=== PATIENT | female | born 1990 | race Two or more races ===

== ENCOUNTER 2024-09-27 12:04 | Emergency (ER) | payer MEDICAID, SELFPAY ==
[2024-09-27 12:13] VITALS: BP 112/75; PULSE 96; RESP 16; TEMP 36.5; O2SAT 98; BMI 37.7
--- NOTE | 2024-09-27 12:19 | XR_ITS ---
Examination: Complete OB ultrasound, less than 14 weeks, transabdominal Date and time of exam: September 27, 2024 1235 hours INDICATIONS: Dizziness episodes beginning 3 days ago Technique: Obstetrical ultrasound images less than 14 weeks performed via transabdominal imaging Findings: A normal shaped single intrauterine gestation is present in the uterus. pole 1.8 cm corresponds to 8 weeks 2 days gestational age Cardiac motion 155 BPM 11 x 18 mm subchorionic hemorrhage Ultrasonographic survey of visible structures unremarkable. Amniotic fluid volume appears appropriate for this estimated gestational age. Right ovary 3.9 cm arterial flow Left ovary 3.6 cm arterial flow 15 mm follicular cyst IMPRESSION: Viable intrauterine gestation 8 weeks 2 days, recommend short-term follow-up study given the subchorionic hemorrhage.
--- NOTE | 2024-09-27 12:20 | PD.EDADULT ---
ED General RME/HPI General Chief complaint: General Adult/Misc Complain Stated complaint: LIGHTHEADED, 9 WEEKS Time Seen by Provider: 09/27/24 12:11 Arrival date/time: 09/27/24 12:04 RME / HPI RME / HPI narrative: 33-year-old female patient 11 para 8, 2, came in for evaluation regarding lightheadedness. She been having lightheadedness for several days, comes and goes, associated with nausea. Patient denies any abdominal pain denies any vaginal bleeding or spotting. Patient denies any headache denies any upper or lower extremity weakness. Patient is 9 weeks no checkup done yet. Related Data Allergies Allergy/AdvReac Type Severity Reaction Status Date / Time No Known Allergies Allergy Verified 12/14/22 15:34 Review of Systems Review of Systems Narrative Review of Systems: Review of system reviewed and within normal limits except mentioned in HPI ED Exam Narrative Physical exam: VITAL SIGNS: Reviewed. GENERAL APPEARANCE: Alert and interactive, follows commands, no acute distress, HEAD AND FACE: Non-traumatic. ENT: PERRL, pink conjunctivitis, eyelid no trauma, Mucous membrane moist. NECK: Supple, nontender, no nuchal rigidity. CHEST: No tenderness, no crepitus, no paradoxical movement, no retractions. LUNGS: Clear, well ventilated, symmetric, no rales, no wheezing, no ronchi, no stridor, good breath sounds bilaterally. HEART: Regular rate, regular rhythm, no murmur, no gallops. ABDOMEN: Soft, positive bowel sounds, nondistended, no guarding, nontender, no rebound, no masses, RECTAL: Deferred. GENITAL: Deferred. NEUROLOGICAL: Gross motor function intact sensory function intact, Appropriate for age. MUSCULOSKELETAL: low back nontender, full range of motion. EXTREMITIES: Nontender, full range of motion. SKIN: Color pink, dry, no rash, no lacerations, no abrasions, no contusions. LYMPHATICS: Deferred. Course Quality Measures none Orders Category Date Time Status US OB <= 14 weeks fetus Stat Exams 09/27/24 12:19 Completed ABO/RH Type Stat Lab 09/27/24 12:33 Completed Basic Metabolic Panel Stat Lab 09/27/24 12:33 Completed Beta HCG,Quantitative Stat Lab 09/27/24 12:33 Completed CBC Stat Lab 09/27/24 12:33 Completed Urinalysis Stat Lab 09/27/24 13:34 Completed Vital Signs Vital signs: Vital Signs Temperature 97.7 F 09/27/24 12:13 Pulse Rate 96 09/27/24 12:13 Respiratory Rate 16 09/27/24 12:13 Blood Pressure 112/75 09/27/24 12:13 Pulse Oximetry (%) 98 09/27/24 12:13 Oxygen Delivery Method Room Air 09/27/24 12:13 Discharge Plan Plan Patient Disposition: Elopement Prescriptions/Referrals Referrals: Jack Galloway MD [Primary Care Provider] - In 1 week Problem List Clinical Impression: Dizziness, Patient/Caregiver Discharge Instructions Print Language: Tanzanian MDM Narrative MDM hospital course: 33-year-old female patient 11 para 8, 2, came in for evaluation regarding lightheadedness. She been having lightheadedness for several days, comes and goes, associated with nausea. Patient denies any abdominal pain denies any vaginal bleeding or spotting. Patient denies any headache denies any upper or lower extremity weakness. Patient is 9 weeks no checkup done yet. Patient's laboratory workup all came back unremarkable including normal urinalysis, ultrasound showed single live intrauterine gestation about 8 weeks gestation Patient eloped from the emergency room Diagnosis Differential diagnosis: Dizziness, anemia, dizziness, Dispositon Disposition: other (Elopement)
[2024-09-27 12:43] LABS: Basophils % (Auto) 0 % (0-2.5); Eosinophils # (Auto) 0.2 Thou/mm3 (0.0-0.5); Eosinophils % (Auto) 2 % (0-10); Hematocrit 37.3 % (36.0-46.0); Hemoglobin 12.8 g/dL (12.0-16.0); Immature Granulocytes % (Auto) 0 % (0-0); Immature Granulocytes Auto 0.03 Thou/mm3 (0.00-0.00); Lymphocytes # (Auto) 2.3 Thou/mm3 (1.0-4.8); Lymphocytes % (Auto) 23 % (10-50); Mean Corpuscular HGB Conc 34.3 g/dl (31.0-37.0); Mean Corpuscular Hemoglobin 31.1 pg (25.0-35.0); Mean Corpuscular Volume 91 fL (80-100); Monocytes # (Auto) 0.7 Thou/mm3 (0.0-0.8); Monocytes % (Auto) 6 % (0-12); Neutrophils % (Auto) 68 % (37-80); Nucleated Red Blood Cell % 0 /100 WBC (0); Platelet Count 259 Thou/mm3 (140-440); Red Blood Count 4.11 Miln/mm3 (4.00-5.20); White Blood Count 10.3 Thou/mm3 (3.6-11.0)
[2024-09-27 13:14] LABS: Anion Gap 9 (7-16); BUN/Creatinine Ratio 10 Ratio (12-20); Blood Urea Nitrogen 7 mg/dL (9-23); Calcium 8.8 mg/dL (8.3-10.6); Carbon Dioxide 23.7 mMol/L (20.0-31.0); Chloride 105 mMol/L (98-107); Creatinine (Component) 0.7 mg/dL (0.6-1.3); Estimated Creatinine Clearance 111.4 mL/min (>60); Glucose 115 mg/dL (74-106); Osmolality,Calculated 274 (275-295); Potassium 3.9 mMol/L (3.4-5.1); Sodium 138 mMol/L (136-145); eGFR > 60 See Note
[2024-09-27 13:53] LABS: Beta HCG,Quantitative 147068 mIU/mL (<5.0)
[2024-09-27 13:56] LABS: Collection Type, Urine Clean Catch
[2024-09-27 14:12] LABS: Bacteria,Urine Rare; Bilirubin,Urine Negative (Negative); Blood,Urine 2+ (Negative); Color,Urine Yellow (Lt Yel-Yel); Glucose, Urine Negative (Negative); Ketones,Urine Negative (Negative); Leukocyte Esterase,Urine Positive (Negative); Nitrite,Urine Negative (Negative); Protein,Urine Negative (Neg - Trace); RBC,Urine 10 /hpf (0-3); Specific Gravity,Urine 1.025 (1.001-1.035); Squamous Epithelial Cell,Urine 17 /hpf (0-5); Urobilinogen,Urine Negative mg/dL (0.0-1.0); WBC,Urine 1 /hpf (0-5)
[2024-09-27 14:35] LABS: Clarity,Urine Hazy (Clear/Hazy)
== END 2024-09-27 14:30 | disposition left against medical advice (07) ==
LOC: SERX 12:23
PROVIDERS: Nurse Practitioner Family; Emergency Provider Family Medicine; PCP Family Medicine
DX: O26.891 Other specified pregnancy related conditions, first trimester (principal); R42 Dizziness and giddiness; Z3A.09 9 weeks gestation of pregnancy; Z53.29 Procedure and treatment not carried out because of patient's decision for other reasons
CPT/HCPCS: 36415; 76801; 80048; 81001; 84702; 85025; 86900; 86901; 99281

== ENCOUNTER 2024-09-30 15:56 | Emergency (ER) | payer MEDICAID, SELFPAY ==
[2024-09-30 15:57] VITALS: BMI 37.7
[2024-09-30 16:08] VITALS: BP 98/68; PULSE 93; RESP 20; TEMP 37.1; O2SAT 97
--- NOTE | 2024-09-30 16:26 | XR_ITS ---
Examination: CT brain head without contrast. 2-D sagittal coronal reconstructions Date and time of exam:September 30, 2024 1701 hours INDICATIONS: Dizziness weakness today CTDI: vol (mGy):52.1 DLP: (mGycm):1001 Technique: Multiple CT axial sections of the brain have been obtained, 5 mm slice thickness. Contrast has not been administered. 2-D sagittal, coronal reconstructions have been obtained Low dose protocols were performed. One or more of the following dose reduction techniques were used; automated exposure control, adjustment of the mA and/or KV according to patient size, use of iterative reconstruction technique. Findings: No significant ventricular enlargement. Intra-axial or extra-axial hemorrhage density is not seen. No mass effect or midline shift Basal cisterns are not remarkable. Fourth ventricle is midline. Cranial vault intact. Significant chronic left maxillary sinus disease Impression: Negative for acute hemorrhage, mass effect or midline shift
--- NOTE | 2024-09-30 16:28 | EDNOTE_ITS ---
ED Dizzyness RME/HPI General Chief Complaint: Dizziness Stated Complaint: DIZZY 8 WEEKS Time Seen by Provider: 09/30/24 15:59 Source: patient Arrival date/time: 09/30/24 15:56 This is a case of 33-year-old female with no medical history who came in the emergency room due to dizziness on and off for 2 weeks.With lightheadedness headache and on and off nausea and vomiting today patient denies any numbness weakness tingling sensation but complaining of blurring of vision Patient is pregnanct 8 weeks no check up Related Data Previous Rx's ?Medication ?Instructions ?Recorded meclizine 25 mg tablet 25 mg PO TID PRN dizziness # 20 tabs 09/30/24 nitrofurantoin 100 mg PO Q12H 10 days #20 c aps 09/30/24 monohydrate/macrocrystals 100 mg capsule (Macrobid) ondansetron 4 mg disintegrating 4 mg PO Q8H PRN nausea and 09/30/24 tablet vomiting #20 tabs Allergies Allergy/AdvReac Type Severity Reaction Status Date / Time No Known Allergies Allergy Verified 09/30/24 15:57 Review of Systems Review of Systems Systems Reviewed: All systems reviewed, normal except as documented Constitutional Constitutional: Reports system reviewed and no additional complaints, except as documented, Reports as per HPI, Denies anorexia, Denies chills, Denies fever(s), Denies frequent falls and Reports headache(s) Eyes Eyes: Reports system reviewed and no additional complaints, except as documented, Reports as per HPI, Reports blurry vision, Denies change in vision, Denies loss of peripheral vision, Denies loss of vision, Denies other visual disturbances and Denies photophobia ENT Ears, Nose, Mouth, and Throat: Reports system reviewed and no additional complaints, except as documented, Reports as per HPI, Denies abnormal hearing, Denies disequilibrium, Reports dizziness, Reports headache(s) and Reports vertigo Cardiovascular Cardiovascular: Reports system reviewed and no additional complaints, except as documented, Reports as per HPI, Denies acrocyanosis, Denies chest pain, Denies chest pain at rest, Denies chest pain with activity and Denies dyspnea Respiratory Respiratory: Reports system reviewed and no additional complaints, except as documented, Reports as per HPI, Denies change in phlegm color, Denies chest congestion, Denies cough and Denies dyspnea Gastrointestinal Gastrointestinal: Reports system reviewed and no additional complaints, except as documented, Denies as per HPI, Denies abdominal pain, Denies belching, Reports nausea and Reports vomiting Genitourinary Genitourinary: Reports system reviewed and no additional complaints, except as documented, Reports as per HPI, Denies abnormal menses, Denies abnormal vaginal bleeding, Denies dysuria and Denies hematuria Musculoskeletal Musculoskeletal: Denies abnormal gait and Reports numbness Neurologic Neurologic: Reports system reviewed and no additional complaints, except as documented, Reports as per HPI, Denies abnormal gait, Denies abnormal hearing, Denies abnormal movements, Denies abnormal speech, Denies confusion, Denies convulsions, Denies disequilibrium, Reports dizziness, Denies localized weakness, Denies frequent falls, Reports headache(s), Denies lack of coordination, Denies loss of vision, Denies memory loss, Reports numbness, Denies other visual disturbances, Denies paresthesias, Denies radicular pain, Denies sensory deficit and Reports vertigo Psychiatric Psychiatric: Denies confusion and Denies memory loss Course Quality Measures none Orders Category Date Time Status CT head/brain wo con Stat Exams 09/30/24 16:26 Completed US OB <= 14 weeks fetus Stat Exams 09/30/24 19:08 Completed Beta HCG,Quantitative Stat Lab 09/30/24 16:46 Completed CBC Stat Lab 09/30/24 16:46 Completed CMP [Comprehensive Metabolic Panel] Stat Lab 09/30/24 16:46 Completed HCG Qualitative,Urine Stat Lab 09/30/24 16:57 Completed Urinalysis Stat Lab 09/30/24 16:57 Completed Meclizine HCl [Antivert] Med 09/30/24 17:56 Discontinued 50 mg PO X1 ONE Ondansetron Odt [Zofran Odt] Med 09/30/24 17:56 Discontinued 4 mg PO X1 ONE Vital Signs Vital signs: Vital Signs Temperature 98.8 F 09/30/24 16:08 Pulse Rate 93 09/30/24 16:08 Respiratory Rate 20 09/30/24 16:08 Blood Pressure 98/68 09/30/24 16:08 Pulse Oximetry (%) 97 09/30/24 16:08 Oxygen Delivery Method Room Air 09/30/24 16:08 oxygen saturation 97 percent room WNL Dizziness MDM Narrative MDM Narrative:: This is a case of 33-year-old female with no medical history who came in the emergency room due to dizziness on and off for 2 weeks.With lightheadedness headache and on and off nausea and vomiting today patient denies any numbness weakness tingling sensation but complaining of blurring of vision Patient is pregnanct 8 weeks no check u Physical exam showed normal neurological exam normal no focal deficit steady gait cv 2-12 normal motor sensry reflex normal patient is pregnanct worries if she has cva or tia patient has blurring of vision and numbness i discussed the complication of procedure ct scan of the head patient choose to have ct scan of the head abdominal shield was done to protect the fetus. patient denies any vaginal bleeding vaginal dc vaginal spotting perrl eom intact no papiledema Blood test showed no leukocytosis no anemia kidney and liver function is normal no electrolyte imbalance patient urinalysis showed positive blood and WBC in urine suggestive of urinary tract infection patient CT scan showed normal no CVA no TIA beta hcg noted [id number] pelvic ultrasound showed 7 weeks Heart rate 173 Based on my physical examination and history patient symptoms possibly due to vertigo she was discharged with meclizine which is safe for and Zofran for nausea and vomiting patient was advised also could take Macrobid for urinary tract infection she will follow-up with PCP to be referred to OB for checkup if ENT for vertigo persists or recur she needs to see neurologist for dizziness Patient was discharged with comfortable condition walking with stable gait. Patient verbalized no further complains explained diagnosis and answered patient question. Patient is comfortable with the proposed management plan including the need to follow up with his/her primary care physician and any specialist if applicable Discussed patient for any urgent condition or worsening sx, He/She needed to go to emergency room immediately or call 911. Patient acknowledge the responsibility to follow up as instructed and to monitor her/his symptoms. For any persistence of the symptoms for more than 3-5 days return precaution advised. Discussed the result of the test and was given printed discharge ins truction Patient data External records reviewed:: [facility] previous records Clinical information provided by:: patient Social determinants that could affect healthcare access:: none Patient has the following chronic illnesses:: none How is presenting disease/condition affected by chronic disease/condition?: no chronic disease Evaluation data The following diagnostics were reviewed and interpreted by me:: lab results and radiology exam(s) Lab and/or radiology exams considered but not ordered:: reviewed Interpretation Summary: reviewed Medications / Prescriptions Medications or Prescriptions considered but not ordered:: given Medication administrations:: Medication Administration History Discontinued Medications Meclizine HCl (Meclizine Hcl 25 Mg Tablet) 50 mg PO X1 ONE Stop: 09/30/24 17:57 Last Admin: 09/30/24 18:26 Dose: 50 mg Documented By: DO Ondansetron HCl (Ondansetron Odt 4 Mg Tabrap) 4 mg PO X1 ONE; Protocol Stop: 09/30/24 17:57 Last Admin: 09/30/24 18:27 Dose: 4 mg Documented By: DO given Consultations Consultation(s) initiated? (list below): No Diagnosis Dizziness Differential Diagnosis: benign paroxysmal positional vertigo Most likely diagnosis given after review of the tests above:: vertigo uti Admission Indicated Admission indicated?: not indicated Explain why admission is indicated or not indicated:: not indicated Admission Request Was there a request for admission?: No Admission Attestation Admission request attestation: none Disposition Plan Disposition Plan: Discharge Discharge Attestation Discharge Attestation: The patient and all family members were given an opportunity to ask questions and understood the discharge instructions. Discharge instructions specifically effects, indications for sooner follow up or return to the emergency department, and the expected course of current diagnosis. Patient condition: Stable Discharge Plan Plan Patient Disposition: HOME (Self Care) Patient condition on transfer: Stable Prescriptions/Referrals Prescriptions/Med Rec: New meclizine 25 mg tablet 25 mg PO TID PRN (Reason: dizziness) Qty: 20 0RF ondansetron 4 mg tablet,disintegrating 4 mg PO Q8H PRN (Reason: nausea and vomiting) Qty: 20 0RF nitrofurantoin monohyd/m-cryst [Macrobid] 100 mg capsule 100 mg PO Q12H 10 Days Qty: 20 0RF Rx Instructions: must administer with a meal/food Referrals: Jack Galloway MD [Primary Care Provider] - In 1 week Problem List Clinical Impression: Dizziness, Vertigo, Urinary tract infection, Patient/Caregiver Discharge Instructions Education Materials: Understanding Urinary Tract ..., Your First Trimester ..., Vertigo Staying Safe, ED Dizziness, Uncertain Cause Additional Instructions: Follow-up with your primary care physician in 2 days for reevaluation and to be referred to ENT specialist for your vertigo if there will be recurrence and persistent dizziness you need to see a neurologist for further evaluation and treatment of dizziness increase water intake keep hydrated finish the course of antibiotic It is very important to 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
[2024-09-30 17:07] LABS: Basophils % (Auto) 0 % (0-2.5); Eosinophils # (Auto) 0.2 Thou/mm3 (0.0-0.5); Eosinophils % (Auto) 3 % (0-10); Hematocrit 35.1 % (36.0-46.0); Hemoglobin 12.4 g/dL (12.0-16.0); Immature Granulocytes % (Auto) 0 % (0-0); Immature Granulocytes Auto 0.02 Thou/mm3 (0.00-0.00); Lymphocytes # (Auto) 2.3 Thou/mm3 (1.0-4.8); Lymphocytes % (Auto) 26 % (10-50); Mean Corpuscular HGB Conc 35.3 g/dl (31.0-37.0); Mean Corpuscular Hemoglobin 31.5 pg (25.0-35.0); Mean Corpuscular Volume 89 fL (80-100); Monocytes # (Auto) 0.9 Thou/mm3 (0.0-0.8); Monocytes % (Auto) 10 % (0-12); Neutrophils # (Auto) 5.3 Thou/mm3 (1.8-7.7); Neutrophils % (Auto) 61 % (37-80); Nucleated Red Blood Cell % 0 /100 WBC (0); Platelet Count 231 Thou/mm3 (140-440); RDW Standard Deviation 41.5 fL (36.4-46.3); Red Blood Count 3.94 Miln/mm3 (4.00-5.20); White Blood Count 8.7 Thou/mm3 (3.6-11.0)
[2024-09-30 17:11] LABS: Collection Type, Urine Voided
[2024-09-30 17:28] LABS: HCG Qualitative,Urine Positive
[2024-09-30 17:34] LABS: Bacteria,Urine Rare; Bilirubin,Urine Negative (Negative); Blood,Urine 2+ (Negative); Clarity,Urine Turbid (Clear/Hazy); Color,Urine Yellow (Lt Yel-Yel); Glucose, Urine Negative (Negative); Ketones,Urine Trace (Negative); Leukocyte Esterase,Urine Negative (Negative); Nitrite,Urine Negative (Negative); Protein,Urine 1+ (Neg - Trace); RBC,Urine 14 /hpf (0-3); Specific Gravity,Urine 1.038 (1.001-1.035); Squamous Epithelial Cell,Urine 14 /hpf (0-5); WBC,Urine 3 /hpf (0-5)
[2024-09-30 18:14] LABS: Alanine Aminotransferase 8 U/L (10-49); Albumin, Serum 4.1 gm/dL (3.5-5.0); Albumin/Globulin Ratio 1.8 (1.2-2.2); Alkaline Phosphatase 54 U/L (46-116); Anion Gap 9 (7-16); Aspartate Amino Transferase 14 U/L (0-34); BUN/Creatinine Ratio 13 Ratio (12-20); Bilirubin,Total 0.2 mg/dL (0.3-1.2); Blood Urea Nitrogen 10 mg/dL (9-23); Calcium 9.7 mg/dL (8.3-10.6); Calcium (Corrected) 9.7 mg/dL (8.5-10.1); Carbon Dioxide 23.6 mMol/L (20.0-31.0); Chloride 102 mMol/L (98-107); Creatinine (Component) 0.8 mg/dL (0.6-1.3); Estimated Creatinine Clearance 97.5 mL/min (>60); Globulin 2.3 gm/dL (2.3-3.5); Glucose 75 mg/dL (74-106); Osmolality,Calculated 268 (275-295); Potassium 3.5 mMol/L (3.4-5.1); Sodium 135 mMol/L (136-145); Total Protein 6.4 gm/dL (5.7-8.2); eGFR > 60 See Note
[2024-09-30] MEDS: MECLIZINE HCL 25 MG TABLET 50 MG PO (18:26)
[2024-09-30] MEDS: ONDANSETRON ODT 4 MG TABRAP PO (18:27)
--- NOTE | 2024-09-30 19:08 | XR_ITS ---
Examination: Complete OB ultrasound, less than 14 weeks, transabdominal Date and time of exam: September 30, 2024, 1958 hours INDICATIONS: Dizziness vomiting beginning 11:00 AM this morning, early by history Technique: Obstetrical ultrasound images less than 14 weeks performed via transabdominal imaging Findings: A normal shaped single intrauterine gestation is present in the uterus. pole 1.4 cm corresponds to 7 weeks 4 days gestational age Adjacent subchorionic hemorrhage 18 x 9 mm Cardiac motion 173 BPM Ultrasonographic survey of visible and placental structures unremarkable. Amniotic fluid volume appears appropriate for this estimated gestational age. Right ovary 3.4 cm arterial flow Left ovary 3.0 cm arterial flow IMPRESSION: Viable intrauterine gestation 7 weeks 4 days, recommend short-term follow-up given the subchorionic hemorrhage.
[2024-09-30 20:37] LABS: Beta HCG,Quantitative 144205 mIU/mL (<5.0)
== END 2024-09-30 20:39 | disposition home or self-care (01) ==
PROVIDERS: Nurse Practitioner Family; Emergency Provider Family Medicine; PCP Family Medicine
DX: O26.891 Other specified pregnancy related conditions, first trimester (principal); O23.41 Unspecified infection of urinary tract in pregnancy, first trimester; N39.0 Urinary tract infection, site not specified; Z3A.01 Less than 8 weeks gestation of pregnancy; R42 Dizziness and giddiness
CPT/HCPCS: 36415; 70450; 76801; 80053; 81001; 81025; 84702; 85025; 99284; Q0162; A9270

== ENCOUNTER 2024-10-11 17:13 | Emergency (ER) | payer MEDICAID, SELFPAY ==
[2024-10-11 17:14] VITALS: BMI 37.7
[2024-10-11 17:24] VITALS: BP 103/70; PULSE 81; RESP 15; TEMP 36.7; O2SAT 99
--- NOTE | 2024-10-11 17:44 | EKG_ITS ---
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
--- NOTE | 2024-10-11 17:45 | EDRME_ITS ---
Rapid Medical Screening Exam FOR[facility] Arrival date/time: 10/11/24 17:13 33-year-old female with no known medical history presents to the emergency room with a chief complaint of dizziness and lightheadedness x 1 day. Patient is currently 9 weeks . Patient denies any abdominal cramping, vaginal bleeding, vaginal discharge or dysuria. I have greeted and performed a focused initial assessment of this patient. A comprehensive ED assessment and evaluation of the patient, analysis of all test results, and completion of the medical decision making process will be conducted by additional ED providers. Chief Complaint: Dizziness Vital signs: Vital Signs Temperature 98.1 F 10/11/24 17:24 Pulse Rate 81 10/11/24 17:24 Respiratory Rate 15 10/11/24 17:24 Blood Pressure 103/70 10/11/24 17:24 Pulse Oximetry (%) 99 10/11/24 17:24 Oxygen Delivery Method Room Air 10/11/24 17:24 Vital signs reviewed by provider: Yes
[2024-10-11] MEDS: MECLIZINE HCL 25 MG TABLET 50 MG PO (17:58)
[2024-10-11 18:33] LABS: Basophils # (Auto) 0.1 Thou/mm3 (0.0-0.2); Basophils % (Auto) 1 % (0-2.5); Eosinophils # (Auto) 0.4 Thou/mm3 (0.0-0.5); Eosinophils % (Auto) 4 % (0-10); Hematocrit 38.8 % (36.0-46.0); Hemoglobin 13.2 g/dL (12.0-16.0); Immature Granulocytes % (Auto) 0 % (0-0); Immature Granulocytes Auto 0.04 Thou/mm3 (0.00-0.00); Lymphocytes # (Auto) 3.4 Thou/mm3 (1.0-4.8); Lymphocytes % (Auto) 30 % (10-50); Mean Corpuscular Hemoglobin 31.1 pg (25.0-35.0); Mean Corpuscular Volume 91 fL (80-100); Monocytes # (Auto) 0.7 Thou/mm3 (0.0-0.8); Monocytes % (Auto) 6 % (0-12); Neutrophils # (Auto) 6.8 Thou/mm3 (1.8-7.7); Neutrophils % (Auto) 60 % (37-80); Nucleated Red Blood Cell % 0 /100 WBC (0); Platelet Count 256 Thou/mm3 (140-440); RDW Standard Deviation 41.2 fL (36.4-46.3); Red Blood Count 4.25 Miln/mm3 (4.00-5.20); White Blood Count 11.3 Thou/mm3 (3.6-11.0)
[2024-10-11 18:43] LABS: B-Type Natriuretic Peptide 33 pg/mL (0-100)
[2024-10-11 18:47] LABS: Alanine Aminotransferase 12 U/L (10-49); Albumin/Globulin Ratio 1.7 (1.2-2.2); Alkaline Phosphatase 56 U/L (46-116); Anion Gap 10 (7-16); Aspartate Amino Transferase 17 U/L (0-34); BUN/Creatinine Ratio 10 Ratio (12-20); Bilirubin,Total 0.3 mg/dL (0.3-1.2); Blood Urea Nitrogen 7 mg/dL (9-23); Calcium 8.8 mg/dL (8.3-10.6); Calcium (Corrected) 8.8 mg/dL (8.5-10.1); Carbon Dioxide 24.3 mMol/L (20.0-31.0); Chloride 105 mMol/L (98-107); Creatinine (Component) 0.7 mg/dL (0.6-1.3); Estimated Creatinine Clearance 111.4 mL/min (>60); Globulin 2.3 gm/dL (2.3-3.5); Glucose 81 mg/dL (74-106); Magnesium 1.7 mg/dL (1.6-2.6); Osmolality,Calculated 274 (275-295); Potassium 4.1 mMol/L (3.4-5.1); Sodium 139 mMol/L (136-145); Total Protein 6.3 gm/dL (5.7-8.2); Troponin I < 0.002 ng/mL (0.0-0.045); eGFR > 60 See Note
[2024-10-11 19:21] LABS: Collection Type, Urine Clean Catch
[2024-10-11 19:29] LABS: Bacteria,Urine Rare; Bilirubin,Urine Negative (Negative); Blood,Urine 1+ (Negative); Clarity,Urine Clear (Clear/Hazy); Color,Urine Lt-Yellow (Lt Yel-Yel); Glucose, Urine Negative (Negative); Ketones,Urine Trace (Negative); Leukocyte Esterase,Urine Negative (Negative); Nitrite,Urine Negative (Negative); Protein,Urine Negative (Neg - Trace); RBC,Urine 33 /hpf (0-3); Specific Gravity,Urine 1.023 (1.001-1.035); Squamous Epithelial Cell,Urine 9 /hpf (0-5); Urobilinogen,Urine Negative mg/dL (0.0-1.0); WBC,Urine 2 /hpf (0-5)
--- NOTE | 2024-10-11 21:28 | PD.EDADDENDU ---
Emergency Room Addendum Addendum Narrative: Patient was initially seen and treated by our GRIFFIN. When I looked for the patient to start my evaluation/treatment, I was told the patient eloped. Ramon Sampson MD
== END 2024-10-11 21:33 | disposition left against medical advice (07) ==
PROVIDERS: Nurse Practitioner Family; Emergency Provider Emergency Medicine; PCP Family Medicine
DX: O26.891 Other specified pregnancy related conditions, first trimester (principal); R42 Dizziness and giddiness; Z53.29 Procedure and treatment not carried out because of patient's decision for other reasons; Z3A.09 9 weeks gestation of pregnancy
CPT/HCPCS: 36415; 80053; 81001; 83735; 83880; 84484; 85025; 93005; 99281; A9270

== ENCOUNTER 2025-04-03 11:29 | Emergency (ER) | payer MEDICAID, SELFPAY ==
[2025-04-03] VITALS (7 sets, daily range): BP systolic 111; BP diastolic 70; PULSE 90–102; RESP 20–98; TEMP 36.4; O2SAT 96–98; BMI 39.4
== END 2025-04-03 15:15 | disposition left against medical advice (07) ==
PROVIDERS: Emergency Provider Emergency Medicine; Referring Provider Specialist; Visit Provider Specialist
DX: Z53.21 Procedure and treatment not carried out due to patient leaving prior to being seen by health care provider (principal)
CPT/HCPCS: 59025

== ENCOUNTER 2025-04-05 18:37 | Observation (INO) | payer MEDICAID, SELFPAY ==
[2025-04-05 18:47] VITALS: BP 100/64; PULSE 84; RESP 18; RESP 97; TEMP 36.5; BMI 39.4
== END 2025-04-05 19:25 | disposition home or self-care (01) ==
PROVIDERS: Admitting Provider Specialist; Visit Provider Specialist
DX: O36.8130 Decreased fetal movements, third trimester, not applicable or unspecified (principal); Z3A.35 35 weeks gestation of pregnancy
CPT/HCPCS: 59025; 59899

== ENCOUNTER 2025-05-03 13:26 | Observation (INO) | payer MEDICAID, SELFPAY ==
--- NOTE | 2025-04-30 15:42 | ESHP_ITS ---
RE: ADIN AHN : 1990 DATE OF ADMISSION: 05/03/2025 HISTORY OF PRESENT ILLNESS: This is a 34-year-old G11, P8-0-2-8 with due date of 05/09 with intrauterine at 39 weeks and 1 day on 05/03 who is admitted for induction of labor for gestational diabetes mellitus class A1, well-controlled. She has had serial ultrasounds throughout her by maternal medicine which have been reassuring. Her most recent ultrasound on 04/26 showed overall growth at the 62nd percentile. Current estimated weight 8 pounds. She denies any leaking or bleeding. She reports occasional contractions. She reports normal movement. MEDICATIONS: 1. multivitamin 1 p.o. daily. 2. Aspirin 81 mg p.o. daily. PAST MEDICAL HISTORY: Benign positional vertigo, post-traumatic stress disorder, advanced maternal age, grand multiparity, syphilis treated in 2020. RPR was negative 12/13/2024 and was negative when repeated at 32 weeks gestation. Gestational diabetes mellitus class A1. FAMILY HISTORY: Diabetes. OBSTETRIC HISTORY: 8 previous full-term normal vaginal deliveries without complication and 2 spontaneous abortions without D and C at 6 weeks gestation. PAST SURGICAL HISTORY: Denies. REVIEW OF SYSTEMS: She denies any chest pain, palpitations, cough, fever, shortness of breath, or lower extremity pain. She denies any headache, change of vision, or right upper quadrant pain. She denies any flank pain. PHYSICAL EXAMINATION: VITAL SIGNS: Blood pressure is 104/62, heart rate 88, respirations 18, temperature is 98.6. HEENT: Oropharynx and sclerae are clear. LUNGS: Clear to auscultation bilaterally. HEART: Regular rate and rhythm. ABDOMEN: Gravid, term size, consistent with estimated weight 8 pounds. EXTREMITIES: Nontender. SKIN: No gross rashes or lesions. NEUROLOGIC: No focal deficits. ASSESSMENT AND PLAN: Intrauterine at 39 weeks and 1 day, gestational diabetes mellitus class A1, grand multiparity. Induction of labor. Anticipate spontaneous vaginal delivery. Informed consent was obtained. The patient is made aware of the risks, complications, alternatives, and benefits of the proposed procedure. She agrees. She is aware of the risk of operative vaginal delivery and delivery and agrees with these modes of delivery if indicated. She is aware that due to the grand multiparity that there is an increased risk of hemorrhage leading to possible surgical interventions and maybe hysterectomy. The patient is multiparous and she declines future fertility. She is aware of the risk of operative vaginal delivery and delivery and agrees with these modes of delivery if indicated. DT: 11:22:38 TT: 11:35:00 Ref: [id number] - TID: [id number] MTDD
[2025-05-03] VITALS (13 sets, daily range): BP systolic 76–119; BP diastolic 49–62; PULSE 78–101; RESP 18; TEMP 36.4–36.6; O2SAT 94–99; BMI 39.2
[2025-05-03 14:05] LABS: Basophils # (Auto) 0.0 Thou/mm3 (0.0-0.2); Basophils % (Auto) 0 % (0-2.5); Eosinophils # (Auto) 0.1 Thou/mm3 (0.0-0.5); Eosinophils % (Auto) 1 % (0-10); Hematocrit 35.3 % (36.0-46.0); Hemoglobin 11.7 g/dL (12.0-16.0); Immature Granulocytes Auto 0.09 Thou/mm3 (0.00-0.00); Lymphocytes # (Auto) 2.3 Thou/mm3 (1.0-4.8); Lymphocytes % (Auto) 21 % (10-50); Mean Corpuscular HGB Conc 33.1 g/dl (31.0-37.0); Mean Corpuscular Hemoglobin 31.0 pg (25.0-35.0); Mean Corpuscular Volume 94 fL (80-100); Monocytes # (Auto) 0.8 Thou/mm3 (0.0-0.8); Monocytes % (Auto) 7 % (0-12); Neutrophils # (Auto) 7.7 Thou/mm3 (1.8-7.7); Neutrophils % (Auto) 70 % (37-80); Nucleated Red Blood Cell # 0.00 Thou/mm3 (0.00-0.00); Nucleated Red Blood Cell % 0 /100 WBC (0); Platelet Count 255 Thou/mm3 (140-440); RDW Standard Deviation 46.0 fL (36.4-46.3); Red Blood Count 3.77 Miln/mm3 (4.00-5.20); White Blood Count 11.1 Thou/mm3 (3.6-11.0)
--- NOTE | 2025-05-03 14:25 | XR_ITS ---
Examination: Complete OB ultrasound greater than 14 weeks Date and time of exam: 05/03/2025 at 3:00 p.m. Findings: Viable intrauterine single fetus with single amniotic sac. heart rate is normal at 141 bpm Fetus is currently in cephalic presentation. There is a normal three-vessel cord identified. The amniotic fluid volume index is normal the placenta is situated at the fundus, it is grade 2. The cervix could not be visualized, it was obscured by the head. Composite estimated gestational age based on BPD, head circumference, abdominal circumference, femur length is 38 weeks 4 days. Estimated weight is 3470 g. Estimated date of delivery is May 13, 2025 . Survey of intracranial anatomy, spinal anatomy, abdominal anatomy, four-chamber heart performed with no abnormalities identified. Impression: 1. There is a single viable intrauterine fetus, currently in cephalic presentation. Estimated gestational age 38 weeks 4 days, estimated date of delivery May 13, 2025. Estimated weight 3470 g. 2 no abnormalities are noted, please see above for more complete.
[2025-05-03 14:47] LABS: Syphilis Reactive (Nonreactive)
[2025-05-03 14:49] LABS: MHATP/TP-PA* See Sep Rpt
[2025-05-03 14:52] LABS: Collection Type, Urine Clean Catch
[2025-05-03 15:09] LABS: Creatinine,Random Urine 58 mg/dL (30-125); Protein Total, Random Urine 16 mg/dL (1-14)
[2025-05-03 15:11] LABS: Fibrinogen 409 mg/dL (175-375); INR 0.9 (0.9-1.3); Partial Thromboplastin Time 27.5 Seconds (22.0-36.0); Prothrombin Time 10.1 Seconds (9.0-12.2)
[2025-05-03 15:11] LABS: Amorphous Crystals,Urine Present (Absent); Bilirubin,Urine Negative (Negative); Blood,Urine Negative (Negative); Color,Urine Lt-Yellow (Lt Yel-Yel); Glucose, Urine Negative (Negative); Ketones,Urine Negative (Negative); Leukocyte Esterase,Urine Negative (Negative); Nitrite,Urine Negative (Negative); PH,Urine 8.0 (5.0-7.0); Protein,Urine Negative (Neg - Trace); RBC,Urine 5 /hpf (0-3); Specific Gravity,Urine 1.015 (1.001-1.035); Squamous Epithelial Cell,Urine 3 /hpf (0-5); Urobilinogen,Urine Negative mg/dL (0.0-1.0); WBC,Urine 1 /hpf (0-5)
[2025-05-03 15:14] LABS: Alanine Aminotransferase 12 U/L (10-49); Albumin, Serum 3.8 gm/dL (3.5-5.0); Albumin/Globulin Ratio 1.5 (1.2-2.2); Alkaline Phosphatase 120 U/L (46-116); Anion Gap 11 (7-16); Aspartate Amino Transferase 20 U/L (0-34); BUN/Creatinine Ratio 10 Ratio (12-20); Bilirubin,Total 0.2 mg/dL (0.3-1.2); Blood Urea Nitrogen 6 mg/dL (9-23); Calcium 8.9 mg/dL (8.3-10.6); Calcium (Corrected) 9.1 mg/dL (8.5-10.1); Carbon Dioxide 23.3 mMol/L (20.0-31.0); Chloride 106 mMol/L (98-107); Creatinine (Component) 0.6 mg/dL (0.6-1.3); Estimated Creatinine Clearance 131.7 mL/min (>60); Globulin 2.6 gm/dL (2.3-3.5); Glucose 79 mg/dL (74-106); LDH (Lactate Dehydrogenase) 156 U/L (120-246); Osmolality,Calculated 276 (275-295); Potassium 3.8 mMol/L (3.4-5.1); Sodium 140 mMol/L (136-145); Total Protein 6.4 gm/dL (5.7-8.2); Uric Acid 4.0 mg/dL (3.1-7.8); eGFR > 60 See Note
[2025-05-03 16:11] LABS: Clarity,Urine Hazy (Clear/Hazy)
[2025-05-03] MEDS: RINGERS LACTATED 1000 ML 1,000 ML 100 ML IV (18:41)
[2025-05-04] VITALS (14 sets, daily range): BP systolic 92–103; BP diastolic 54–63; PULSE 77–91; RESP 17–19; TEMP 36.6–36.7; O2SAT 95–96
--- NOTE | 2025-05-04 07:38 | ESPR_ITS ---
Documentation for date of: 05/04/25 OB Labor Progress Note Pain Control Comments: Desires epidural Pelvic Exam Dilation (cm): 9 Effacement (%): 80 station: -2 Amniotic membrane status: Intact Comments: Had not well applied to cervix yet Contractions Monitor mode: External Contraction frequency: 2-3 Contraction intensity: Strong Status status: Category l Assessment and Plan Comments: Anticipate spontaneous vaginal delivery I discussed with the building cleaning supervisor Dr Sharma the patient's reactive RPR on admission and the confirmatory test and titer are pending at the [facility] lab and will not be available until next week The patient's RPR was negative on February 26 and on November 14: She was treated for syphilis back in 2020 History of Present Illness HPI Complaining of labor pains , no leaking fluid or bleeding
[2025-05-04] MEDS: NICOTINE PATCH 21 MG/24 HR PATCH.TD24 TOP (13:32)
--- NOTE | 2025-05-04 15:08 | PD.LDPN ---
Documentation for date of: 05/04/25 OB Labor Progress Note Pelvic Exam Comments: see RN notes Contractions Monitor mode: External Contraction frequency: irreg Contraction intensity: Mild Status status: Category l Assessment and Plan Comments: Pt declines further trial of induction and would like to go home and come back on Tuesday. As the tracing has been reassuring and her vitals stable I agree with her desire to go home and follow up for induction on Tuesday Dischage Home Daily kick counts Monitor or signs of labor or decreased movment. History of Present Illness HPI Complaining of labor pains , no leaking fluid or bleeding
--- NOTE | 2025-05-04 15:11 | ESDS_ITS ---
DS: Providers Provider Date of admission: 05/03/25 13:26 Primary care physician: Jakc Galloway MD Admitting Provider: Wayne Fernando MD Attending Provider on Admission: Wayne Fernando MD Attending Provider on DC: Wayne Fernando MD Discharging Provider: Wayne Fernando MD DS: Diagnosis Problem List Completed Was Problem List Reviewed/Reconciled?: No Summary/Hosp Course Brief History: Admitted for induction of labor for GDMA1 well controlled at 39w1d. After Cervidil and Cytotec x 2 her Gonzalez Score remained low and the patient declined further trial of induction and was discharged home with follow in 48 hours for retry induction of labor. Time Spent with Patient Time attestation: Total time spent providing and/or coordinating discharge services: Exam Vital Signs Temp Pulse Resp BP Pulse Ox O2 Del Method 97.8 F 89 19 92/62 96 Room Air 05/04/25 15:10 05/04/25 15:02 05/04/25 15:10 05/04/25 15:02 05/04/25 11:38 05/04/25 15:10 Discharge Plan Prescriptions/Referrals Prescriptions/Med Rec: No Action aspirin 81 mg capsule 81 mg PO QDAY PNV no.95-ferrous fumarate-FA [] 28 mg iron- 800 mcg tablet 1 tab PO QDAY Patient Comments: take 1 tablet by mouth once daily Referrals: Jack Galloway MD [Primary Care Provider, Family Practice] Patient/Caregiver Discharge Instructions Print Language: Icelandic Planned Discharge Date 05/04/25
--- NOTE | 2025-05-06 07:39 | ESHP_ITS ---
RE: ADIN AHN : 1990 DATE OF ADMISSION: 05/06/2025 HISTORY OF PRESENT ILLNESS: This is 34-year-old 11, para 8-0-2-8 with due date of 05/09 with intrauterine at 39 weeks and 4 days on 05/06 who presents for induction of labor for gestational diabetes mellitus class A1, well controlled. Her most recent ultrasound on 05/03 shows estimated weight 3470 grams. She has had serial ultrasounds throughout her by maternal medicine which have been reassuring. She denies any leaking or bleeding. She reports occasional contractions. She reports normal movement. She underwent a trial of induction of labor from 05/03 through 05/04 and she received Cervidil and 1 or 2 doses of Cytotec, but was frustrated by the lack of progress and decided to go home and return today for repeat trial of induction. MEDICATIONS: 1. multivitamin 1 p.o. daily. 2. Aspirin 81 mg 1 p.o. daily. PAST MEDICAL HISTORY: Benign positional vertigo, post-traumatic stress disorder, advanced maternal age, grand multiparity, syphilis treated in 2020. RPR was negative 12/13/2024 and RPR was negative when it was repeated again at 32 weeks gestation. Gestational diabetes mellitus class A1, current . FAMILY HISTORY: Diabetes. OBSTETRIC HISTORY: Eight previous full-term vaginal deliveries without complication and 2 spontaneous abortions without D and C, both at 6 weeks gestation. PAST SURGICAL HISTORY: Denies. REVIEW OF SYSTEMS: She denies any chest pain, palpitations, cough, fever, shortness of breath, or lower extremity pain. She denies any headache, change in vision, or right upper quadrant pain. PHYSICAL EXAMINATION: VITAL SIGNS: Blood pressure is 108/72, heart rate 88, respirations 16, temperature is 98.8. HEENT: Oropharynx and sclerae are clear. LUNGS: Clear to auscultation bilaterally. HEART: Regular rate and rhythm. ABDOMEN: Gravid, term size, consistent with estimated weight 3470 grams. EXTREMITIES: Nontender. SKIN: No gross rashes or lesions. NEUROLOGIC: No focal deficit. ASSESSMENT AND PLAN: Intrauterine at 39 weeks and 4 days. Gestational diabetes mellitus class A1, well controlled, grand multiparity, induction of labor, anticipate spontaneous vaginal delivery. Informed consent was obtained. The patient was made aware of the risks, complications, alternatives, and benefits of the proposed procedure and she agrees. She is aware of the risk of operative vaginal delivery and delivery and agrees with these modes of delivery if indicated. She is aware that due to the grand multiparity that there is an increased risk of hemorrhage leading to possible surgical interventions and maybe hysterectomy. The patient is multiparous and she declines future fertility. DT: :26:26 TT: 07:38:00 Ref: [id number] - TID: [id number]
== END 2025-05-04 15:40 | disposition home or self-care (01) ==
PROVIDERS: Admitting Provider Specialist; PCP Family Medicine; Visit Provider Specialist
DX: O61.0 Failed medical induction of labor (principal); O24.410 Gestational diabetes mellitus in pregnancy, diet controlled; Z3A.39 39 weeks gestation of pregnancy
CPT/HCPCS: 36415; 59899; 76805; 80053; 81001; 82570; 83615; 84156; 84550; 85025; 85384; 85610; 85730; 86780; 86850; 86900; 86901; 86923; 87086; 96374; G0378; J2470; J7120; A9270